=== PATIENT | female | born 2000 | race Caucasian/White ===

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

== ENCOUNTER 2021-01-23 02:18 | Emergency (ER) | payer MEDICAID ==
[2021-01-23] MEDS ORDERED: Morphine 2 MG/ML SYRINGE IVPUSH ONE (03:01)
[2021-01-23] MEDS ORDERED: Ondansetron 4 MG/2 ML SDV IVPUSH PRN (03:02)
--- NOTE | 2021-01-23 03:15 | EDM.PDOC ---
ED HPI GENERAL MEDICAL PROBLEM - General Chief Complaint: Flank Pain Stated Complaint: BAD PAIN IN LOWER BACK LEFT SIDE, VOMITTING Time Seen by Provider: 01/23/21 02:45 - History of Present Illness INITIAL COMMENTS - FREE TEXT/NARRATIVE: 20-year-old lady came to the emergency department for evaluation of left flank pain, abdominal pain, pelvic pain, nausea, vomiting. She states that she was tested for STDs on 01/17/2021 and was found to be negative. On Saturday she had a Mirena device placed and that evening began to experience mild symptoms as above. She states that her symptoms have continuously gradually gotten worse to the point that she came in for evaluation tonight. She denies chest pain but she does have some difficulty breathing when laying down because of pain. - Related Data Allergies Allergy/AdvReac Type Severity Reaction Status Date / Time No Known Allergies Allergy Verified 09/24/20 22:11 Home Meds: Home Meds Ibuprofen 800 mg PO Q8H PRN #30 tablet 03/09/20 [Rx] Sulfamethoxazole/Trimethoprim [Bactrim Ds Tablet] 1 each PO BID #6 tablet 03/09/20 [Rx] Doxycycline [Vibra-Tabs] 100 mg PO Q12HR #28 tab 01/23/21 [Rx] metroNIDAZOLE [Flagyl] 500 mg PO Q12H #28 tab 01/23/21 [Rx] Past Medical History - Past Health History Medical/Surgical History: Denies Medical/Surgical History Cardiovascular History: Reports: Heart Murmur Respiratory History: Reports: Asthma Other Musculoskeletal History: broken left wrist, broken broken ankle Psychiatric History: Reports: Anxiety, Depression Other Psychiatric History: hx of depression, not on medications now Social & Family History - Family History Family Medical History: No Pertinent Family History - Caffeine Use Caffeine Use: Reports: Coffee, Soda Other Caffeine Use: 2x a wk ED ROS GENERAL - Review of Systems Review Of Systems: See Below Constitutional: Reports: Fatigue HEENT: Reports: No Symptoms Respiratory: Reports: Shortness of Breath Cardiovascular: Reports: No Symptoms Endocrine: Reports: No Symptoms GI/Abdominal: Reports: Abdominal Pain, Nausea, Vomiting : Reports: Dysuria, Flank Pain Musculoskeletal: Reports: No Symptoms Skin: Reports: No Symptoms Neurological: Reports: No Symptoms Psychiatric: Reports: No Symptoms Hematologic/Lymphatic: Reports: No Symptoms Immunologic: Reports: No Symptoms ED EXAM, GI/ABD - Physical Exam Exam: See Below Exam Limited By: No Limitations General Appearance: Alert, WD/WN, Mild Distress Respiratory/Chest: No Respiratory Distress, Lungs Clear, Normal Breath Sounds Cardiovascular: Normal Peripheral Pulses, Regular Rate, Rhythm, No Edema, No Murmur GI/Abdominal Exam: Normal Bowel Sounds, Tender (Female) Exam: Normal External Exam, Adnexal Tenderness, Cervical Discharge, Cervix Motion Tenderness, Vaginal Discharge, Other (Significant white thick discharge with erythema and cervical erythema with cervical motion tenderness and bilateral adnexal tenderness) Back Exam: CVA Tenderness (L). No: CVA Tenderness (R) Extremities: Normal Inspection, No Pedal Edema Neurological: Alert, Oriented Psychiatric: Anxious Skin Exam: Warm, Dry, Intact Course - Vital Signs Text/Narrative:: Pelvic exam showed bilateral adnexal tenderness, cervical motion tenderness, significant erythema of the cervix. Patient likely has pelvic inflammatory disease. Patient will be treated empirically with 1 g ceftriaxone IM and 14 days of doxycycline, 100 mg twice daily, and Flagyl, 500 mg twice daily. Patien t advised to return to the hospital or the office if symptoms do not improve or worsen. Follow-up on urine culture when available. Wet prep showed rare yeast cells and few clue cells. Patient may need follow-up treatment for vaginal yeast infection concurrent with or following antibiotic therapy. Patient advised to follow-up with primary care. Last Recorded V/S: Last Vital Signs Temp 37.0 C 01/23/21 02:25 Pulse 74 01/23/21 02:25 Resp 16 01/23/21 02:25 BP 128/50 L 01/23/21 02:25 Pulse Ox 98 01/23/21 02:25 - Orders/Labs/Meds Orders: Active Orders 24 hr Category Date Time Status CULTURE URINE [RM] Stat Lab 01/23/21 03:20 Received Ondansetron [Zofran] Med 01/23/21 03:02 Active 4 mg IVPUSH Q4H PRN Sodium Chloride 0.9% [Saline Flush] Med 01/23/21 03:40 Active 10 ml FLUSH ASDIRECTED PRN Medication Orders Ondansetron HCl (Ondansetron 4 Mg/2 Ml Sdv) 4 mg IVPUSH Q4H PRN PRN Reason: Nausea/Vomiting Last Admin: 01/23/21 03:45 Dose: 4 mg Documented by: ENEDELIA Sodium Chloride (Sodium Chloride 0.9% 10 Ml Syringe) 10 ml FLUSH ASDIRECTED PRN PRN Reason: Keep Vein Open Last Admin: 01/23/21 03:51 Dose: 10 ml Documented by: Admin: 01/23/21 03:40 Dose: 10 ml Documented by: ENEDELIA Labs: Laboratory Tests 01/23/21 01/23/21 01/23/21 Range/Units 03:20 03:20 03:20 WBC 10.8 H (3.0-10.3) x10-3/uL RBC 4.67 (3.60-5.20) x10(6)uL Hgb 13.7 (11.4-15.5) g/dL Hct 41.4 (34.2-48.2) % MCV 88.7 (76.7-100.5) fL MCH 29.3 (23.9-33.9) pg MCHC 33.0 (31.9-34.8) g/dL RDW 13.1 (12.3-16.5) % Plt Count 193 (151-488) x10(3)uL MPV 9.6 (7.1-12.4) fL Neut % (Auto) 74.6 (30.8-76.2) % Lymph % (Auto) 16.2 L (18.4-52.1) % Logan % (Auto) 7.4 (4.4-15.7) % Eos % (Auto) 1.4 (0.6-8.1) % Baso % (Auto) 0.4 (0.2-1.5) % Neut # (Auto) 8.0 H (1.5-6.3) x10-3/uL Lymph # (Auto) 1.8 (1.0-4.4) x10-3/uL Logan # (Auto) 0.8 (0.3-1.0) x10-3/uL Eos # (Auto) 0.2 (0.0-0.8) x10-3/uL Baso # (Auto) 0.0 (0.0-0.1) x10-3/uL Sodium 143 (135-145) mmol/L Potassium 3.9 (3.5-5.3) mmol/L Chloride 106 (100-110) mmol/L Carbon Dioxide 26 (21-32) mmol/L BUN 11 (7-18) mg/dL Creatinine 0.9 (0.55-1.02) mg/dL Est Cr Clr Drug Dosing TNP Estimated GFR (MDRD) > 60 (>60) BUN/Creatinine Ratio 12.2 (9-20) Glucose 100 (80-116) mg/dL Calcium 8.9 (8.2-10.1) mg/dL Total Bilirubin 0.4 (0.1-1.2) mg/dL AST 10 D (5-25) IU/L ALT 17 D (12-36) U/L Alkaline Phosphatase 56 (56-112) IU/L Total Protein 7.3 (6.0-8.0) g/dL Albumin 3.7 (3.2-4.5) g/dL Globulin 3.6 g/dL Albumin/Globulin Ratio 1.0 Urine Color Yellow (YELLOW) Urine Appearance Slightly cloudy (CLEAR) Urine pH 6.0 (5.0-6.5) Ur Specific [place] 1.020 (1.010-1.025) Urine Protein Trace (NEGATIVE) mg/dL Urine Glucose (UA) Normal (NORMAL) mg/dL Urine Ketones Negative (NEGATIVE) mg/dL Urine Occult Blood Large H (NEGATIVE) Urine Nitrite Negative (NEGATIVE) Urine Bilirubin Negative (NEGATIVE) Urine Urobilinogen Normal (NEGATIVE) mg/dL Ur Leukocyte Esterase Large H (NEGATIVE) Urine RBC 10-20 H (0-5) Urine WBC 30-40 H (0-5) Ur Squamous Epith Cells Moderate H (NS,R,O) Urine Bacteria Few H (NS) Meds: Medications Generic Name Dose Route Start Last Admin Trade Name Freq PRN Reason Stop Dose Admin Ondansetron HCl 4 mg 01/23/21 03:02 01/23/21 03:45 Ondansetron 4 Mg/2 Ml Sdv IVPUSH 4 mg Q4H PRN Administration Nausea/Vomiting Sodium Chloride 10 ml 01/23/21 03:40 01/23/21 03:51 Sodium Chloride 0.9% 10 Ml Syringe FLUSH 10 ml ASDIRECTED PRN Administration Keep Vein Open Discontinued Medications Generic Name Dose Route Start Last Admin Trade Name Freq PRN Reason Stop Dose Admin Ceftriaxone Sodium 1 gm 01/23/21 05:06 Ceftriaxone 1 Gm Vial IM 01/23/21 05:07 ONETIME ONE Morphine Sulfate 2 mg 01/23/21 03:01 01/23/21 03:38 Morphine 2 Mg/Ml Syringe IVPUSH 01/23/21 03:02 2 mg ONETIME ONE Administration Departure - Departure Time of Disposition: 05:15 Disposition: Home, Self-Care 01 Clinical Impression: Pelvic inflammatory disease, UTI, Urinary tract infectious disease - Discharge Information *PRESCRIPTION DRUG MONITORING PROGRAM REVIEWED*: Not Applicable *COPY OF PRESCRIPTION DRUG MONITORING REPORT IN PATIENT DENA: Not Applicable Instructions: Urinary Tract Infection, Adult, Pelvic Inflammatory Disease Referrals: PCP,None [Primary Care Provider] - Saira Morales PA-C [Ordering Only Provider] - Forms: ED Department Discharge Additional Instructions: See hospital course Sepsis Event Note (ED) - Focused Exam Vital Signs: Vital Signs Temp Pulse Resp BP Pulse Ox 01/23/21 02:25 37.0 C 74 16 128/50 L 98 - My Orders Last 24 Hours: My Active Orders 01/23/21 03:02 Ondansetron [Zofran] 4 mg IVPUSH Q4H PRN 01/23/21 03:20 CULTURE URINE [RM] Stat 01/23/21 03:40 Sodium Chloride 0.9% [Saline Flush] 10 ml FLUSH ASDIRECTED PRN - Assessment/Plan Last 24 Hours: My Active Orders 01/23/21 03:02 Ondansetron [Zofran] 4 mg IVPUSH Q4H PRN 01/23/21 03:20 CULTURE URINE [RM] Stat 01/23/21 03:40 Sodium Chloride 0.9% [Saline Flush] 10 ml FLUSH ASDIRECTED PRN
[2021-01-23] MEDS: Sodium Chloride 0.9% 10 ML Syringe FLUSH PRN ×2 (03:40→03:51)
[2021-01-23] MEDS ORDERED: cefTRIAXone 1 GM Vial IM ONE (05:06)
[2021-01-23 06:57] VITALS: BP 123/46; PULSE 73
== END 2021-01-23 05:45 | disposition home or self-care (01) ==
LOC: FB.ED 02:18
DX: N39.0 Urinary tract infection, site not specified (principal); N73.9 Female pelvic inflammatory disease, unspecified
CPT/HCPCS: 36415; 80053; 81001; 85025; 87086; 87088; 87186; 87210; 96372; 96374; 96375; 99284-25; J0696; J2270; J2405

== ENCOUNTER 2022-10-28 07:57 | Emergency (ER) | payer MEDICAID ==
[2022-10-28 08:32] VITALS: BP 153/65; PULSE 88
[2022-10-28] MEDS ORDERED: Clindamycin HCl 150 MG Cap PO ONE (08:34)
[2022-10-28] MEDS ORDERED: traMADol 50 MG Tab PO ONE (08:36)
== END 2022-10-28 08:55 | disposition home or self-care (01) ==
LOC: FB.ED 07:57
DX: K04.7 Periapical abscess without sinus (principal); K02.9 Dental caries, unspecified
CPT/HCPCS: 99282; A9270

== ENCOUNTER 2022-10-29 02:13 | Emergency (ER) | payer BC ==
[2022-10-29 02:45] VITALS: BP 124/78; PULSE 90
== END 2022-10-29 02:48 | disposition home or self-care (01) ==
LOC: FB.ED 02:13
DX: K04.6 Periapical abscess with sinus (principal); J45.909 Unspecified asthma, uncomplicated
CPT/HCPCS: 10060; 41800; 99282

== ENCOUNTER 2023-10-15 03:50 | Emergency (ER) | payer BC ==
[2023-10-15] MEDS: Ibuprofen Susp 100 MG/5 ML 5 ML UD Cup PO ONE (04:42)
[2023-10-15] MEDS: Dexamethasone 4 MG/ML SDV PO ONE (04:43)
[2023-10-15 04:55] LABS: CORONAVIRUS COVID-19 NAA NEGATIVE (NEGATIVE); INFLUENZA A NAA NEGATIVE (NEGATIVE); INFLUENZA B NAA NEGATIVE (NEGATIVE); RESPIRATORY SYNCYTIAL VIR NAA NEGATIVE (NEGATIVE)
[2023-10-15 05:21] VITALS: BP 109/46; PULSE 74
== END 2023-10-15 05:18 | disposition home or self-care (01) ==
LOC: FB.ED 03:50
DX: J02.9 Acute pharyngitis, unspecified (principal); F17.290 Nicotine dependence, other tobacco product, uncomplicated; Z79.899 Other long term (current) drug therapy
CPT/HCPCS: 0241U; 87651-QW; 99284; A9270-GY; J8540

== ENCOUNTER 2024-01-30 02:24 | Emergency (ER) | payer BC ==
[2024-01-30] MEDS: Acetaminophen/oxyCODONE 325-5 MG Tab PO PRN (03:30)
[2024-01-30 06:58] VITALS: BP 100/45; PULSE 65
== END 2024-01-30 06:40 | disposition home or self-care (01) ==
LOC: FB.ED 02:24
DX: U07.1 COVID-19 (principal); Z79.899 Other long term (current) drug therapy; Z86.16 Personal history of COVID-19
CPT/HCPCS: 99283; A9270-GY

== ENCOUNTER 2024-03-15 09:26 | Emergency (ER) | payer BC ==
[2024-03-15 09:45] VITALS: BP 131/84; PULSE 89
[2024-03-15 10:05] LABS: BASOPHILS PERCENT AUTO 0.7 % (0.2-1.5); EOSINOPHILS ABSOLUTE AUTO 0.1 x10-3/uL (0.0-0.8); EOSINOPHILS PERCENT AUTO 1.9 % (0.6-8.1); HEMATOCRIT 44.4 % (34.2-48.2); HEMOGLOBIN 14.9 g/dL (11.4-15.5); LYMPHOCYTES ABSOLUTE AUTO 1.7 x10-3/uL (1.0-4.4); LYMPHOCYTES PERCENT AUTO 36.9 % (18.4-52.1); MEAN CORPUSCULAR HEMOGLOBIN 28.8 pg (23.9-33.9); MEAN CORPUSCULAR HGB CONC 33.5 g/dL (31.9-34.8); MEAN CORPUSCULAR VOLUME 85.8 fL (76.7-100.5); MEAN PLATELET VOLUME 8.7 fL (7.1-12.4); MONOCYTES ABSOLUTE AUTO 0.4 x10-3/uL (0.3-1.0); MONOCYTES PERCENT AUTO 7.9 % (4.4-15.7); NEUTROPHILS ABSOLUTE AUTO 2.4 x10-3/uL (1.5-6.3); NEUTROPHILS PERCENT AUTO 52.6 % (30.8-76.2); PLATELET COUNT,PLT 212 x10(3)uL (151-488); RED BLOOD CELL COUNT 5.17 x10(6)uL (3.60-5.20); RED CELL DISTRIBUTION WIDTH 12.7 % (12.3-16.5); WHITE BLOOD CELL COUNT,WBC 4.6 x10-3/uL (3.0-10.3)
[2024-03-15 10:11] LABS: BLOOD UREA NITROGEN,BUN 10 mg/dL (7-18); BUN/CREATININE RATIO 11.1 (9-20); CARBON DIOXIDE,CO2 25 mmol/L (21-32); CHLORIDE,CL 104 mmol/L (100-110); CREATININE 0.9 mg/dL (0.55-1.02); EST CRCL DRUG DOSING (CG) 91.79 mL/min; ESTIMATED GFR 93 mL/min (>60); GLUCOSE RANDOM 93 mg/dL (80-116); POTASSIUM,K 3.9 mmol/L (3.5-5.3); SODIUM,NA 138 mmol/L (135-145)
[2024-03-15] MEDS: Sodium Chloride 0.9% 10 ML Syringe FLUSH PRN (10:12)
[2024-03-15] MEDS: Ketorolac 15 MG/ML SDV IVPUSH ONE (10:12)
[2024-03-15] MEDS: Sodium Chloride 0.9% 1,000 ML IV ONE (10:12)
[2024-03-15 10:23] LABS: A/G RATIO 0.9; ALANINE AMINOTRANSFERASE,ALT 19 U/L (12-36); ALBUMIN 3.5 g/dL (3.5-5.2); ALKALINE PHOSPHATASE 48 IU/L (56-112); ASPARTATE AMNIOTRANSFERASE,AST 14 IU/L (5-25); BILIRUBIN TOTAL 0.7 mg/dL (0.1-1.3); PROTEIN TOTAL,TP 7.6 g/dL (6.0-8.0)
[2024-03-15 10:43] LABS: BILIRUBIN,URINE NEGATIVE (NEGATIVE); GLUCOSE,URINE NORMAL (NORMAL); KETONES,URINE NEGATIVE (NEGATIVE); LEUKOCYTE ESTERASE,URINE NEGATIVE (NEGATIVE); NITRITE,URINE NEGATIVE (NEGATIVE); OCCULT BLOOD,URINE NEGATIVE (NEGATIVE); PROTEIN,URINE NEGATIVE (NEGATIVE); UROBILINOGEN,URINE NORMAL (NEGATIVE)
[2024-03-15 10:49] LABS: APPEARANCE,URINE CLOUDY (CLEAR); COLOR,URINE YELLOW (YELLOW); RBC,URINE 0-5 (0-5); WBC,URINE 0-5 (0-5)
[2024-03-15 10:50] LABS: AMORPHOUS SEDIMENT,URINE MANY; BACTERIA,URINE FEW (NS); SQUAMOUS EPITHELIAL CELLS,UR FEW (NS,R,O)
[2024-03-18 10:17] LABS: APTIMA MEDIA TYPE Urine; C. TRACHOMATIS BY TMA Negative (Negative); N. GONORRHOEAE BY TMA Negative (Negative); SPECIMEN SOURCE Urine
== END 2024-03-15 12:13 | disposition home or self-care (01) ==
LOC: FB.ED 09:26
DX: N83.201 Unspecified ovarian cyst, right side (principal); F17.290 Nicotine dependence, other tobacco product, uncomplicated; Z86.16 Personal history of COVID-19
CPT/HCPCS: 36415; 74176; 80053; 81001; 81025; 85025; 86140; 87491; 87591; 96361; 96374; 99284; J1885; J3490; J7030

== ENCOUNTER 2024-05-01 17:02 | Emergency (ER) | payer BC ==
[2024-05-01] MEDS ORDERED: Pseudoephedrine 30 MG Tab PO ONE (17:54)
[2024-05-01] MEDS: Amoxicillin/Clavulanate K 875-125 MG Tab PO ONE (18:01)
[2024-05-01 18:27] VITALS: BP 115/61; PULSE 61
== END 2024-05-01 18:20 | disposition home or self-care (01) ==
LOC: FB.ED 17:02
DX: J01.00 Acute maxillary sinusitis, unspecified (principal); Z86.16 Personal history of COVID-19; J45.909 Unspecified asthma, uncomplicated; F17.290 Nicotine dependence, other tobacco product, uncomplicated
CPT/HCPCS: 99283; A9270-GY

== ENCOUNTER 2024-06-25 20:01 | Emergency (ER) | payer BC ==
[2024-06-25] MEDS ORDERED: Amoxicillin/Clavulanate K 875-125 MG Tab PO ONE (20:02)
[2024-06-25 20:16] VITALS: BP 125/69; PULSE 60
== END 2024-06-25 20:30 | disposition home or self-care (01) ==
LOC: FB.ED 20:01
DX: J01.00 Acute maxillary sinusitis, unspecified (principal); J45.909 Unspecified asthma, uncomplicated; Z86.16 Personal history of COVID-19; Z79.899 Other long term (current) drug therapy
CPT/HCPCS: 99282; A9270-GY

== ENCOUNTER 2024-08-05 20:57 | Emergency (ER) | payer BC ==
[2024-08-05 21:14] VITALS: BP 131/70; PULSE 70
[2024-08-05] MEDS ORDERED: Amoxicillin/Clavulanate K 875-125 MG Tab PO ONE (21:27)
[2024-08-05] MEDS: Lidocaine 2% Viscous Solution 15 ML UD PO ONE (21:33)
[2024-08-05] MEDS: Amoxicillin/Clavulanate K 875-125 MG Tab PO ONE (21:33)
[2024-08-05] MEDS: Ibuprofen 800 MG Tab PO ONE (21:33)
[2024-08-05] MEDS: Acetaminophen 500 MG Tab PO ONE (21:34)
[2024-08-05] MEDS: Acetaminophen/oxyCODONE 325-5 MG Tab PO PRN (21:49)
[2024-08-05] MEDS: Ondansetron 4 MG Tab.DIS PO ONE (21:49)
== END 2024-08-05 22:23 | disposition home or self-care (01) ==
LOC: FB.ED 20:57
DX: K05.10 Chronic gingivitis, plaque induced (principal); K02.9 Dental caries, unspecified; Z79.899 Other long term (current) drug therapy; Z86.16 Personal history of COVID-19
CPT/HCPCS: 99282; A9270; Q0162